=== PATIENT | male | born 1955 | race Caucasian/White ===

== ENCOUNTER → 2016-04-01 | Outpatient (REF) | payer OTHER ==
[~2016-04-01] MED LIST: /TIOT18INH INH; ALBUTEROL LIQ; AMLO10TA OR; ATEN25TA OR; DOXY100T OR; HYDR25TA6 OR; NICO21DI4 TD; PRAV40TA OR; TYLE500T53 OR; saline nasal spray
[2016-04-01 15:47] LABS: MEAN CORPUSCULAR HEMOGLOBIN 28.9 pg (27.0-33.0); MEAN CORPUSCULAR HGB CONC 32.1 g/dl (32.0-36.5); MEAN CORPUSCULAR VOLUME 89.9 fl (80.0-96.0); RED CELL DISTRIBUTION WIDTH 13.5 % (11.5-14.5); WHITE BLOOD COUNT 8.1 K/mm3 (4.0-10.0)
[2016-04-01 15:59] LABS: ALBUMIN 3.6 GM/DL (3.2-5.2); ALBUMIN/GLOBULIN RATIO 1.03 (1.00-1.93); ALKALINE PHOSPHATASE 83 U/L (45-117); ALT/SGPT 55 U/L (12-78); ANION GAP 10 MEQ/L (8-16); AST/SGOT 65 U/L (15-37); BILIRUBIN,TOTAL 0.6 MG/DL (0.2-1.0); BLOOD UREA NITROGEN 9 MG/DL (7-18); CALCIUM LEVEL 8.5 MG/DL (8.8-10.2); CARBON DIOXIDE LEVEL 30 MEQ/L (21-32); CHLORIDE LEVEL 98 MEQ/L (98-107); CHOLESTEROL LEVEL 165 MG/DL (<200); CREATININE FOR GFR 1.06 MG/DL (0.70-1.30); GLOMERULAR FILTRATION RATE > 60.0 (>49); GLUCOSE, FASTING 108 MG/DL (80-110); POTASSIUM SERUM 3.9 MEQ/L (3.5-5.1); SODIUM LEVEL 138 MEQ/L (136-145); TOTAL PROTEIN 7.1 GM/DL (6.4-8.2); TRIGLYCERIDES LEVEL 82 MG/DL (<150)
== END ==
LOC: M SFHCPLAZ 14:06
PROVIDERS: ATTEND Nurse Practitioner Adult Health
DX: Z12.5 Encounter for screening for malignant neoplasm of prostate (principal); I10 Essential (primary) hypertension; E78.00 Pure hypercholesterolemia, unspecified
CPT/HCPCS: 36415; 80053; 80061; 85027; G0103

== ENCOUNTER → 2016-06-04 | Outpatient (CLI) | payer OTHER ==
--- NOTE | 2016-06-04 14:05 | REP ---
Clinical: Lung screening. History smoking. Comparison: Chest CT dated 02/14/2010 Technique: Axial low-dose noncontrast images from the thoracic inlet to the upper abdomen using lung screening technique. Findings: The lung tinoco are well-aerated. No consolidation, significant nodule or mass lesion is appreciated. No pleural effusion/reaction or pneumothorax. Tracheobronchial tree is patent. Mediastinum demonstrates mild atherosclerotic changes of the coronary arteries without cardiomegaly. Impression: Lung-RADS category I. No nodule or suspicious abnormality. Signed by Alonso Beauchamp MD 06/04/2016 01:56 P
== END ==
LOC: M RAD 13:11
PROVIDERS: ATTEND Nurse Practitioner Adult Health
DX: Z12.2 Encounter for screening for malignant neoplasm of respiratory organs (principal); F17.210 Nicotine dependence, cigarettes, uncomplicated

== ENCOUNTER 2016-06-26 16:26 | Inpatient (IN) | payer OTHER ==
[~2016-06-26] VITALS: Ht 172.7 cm; Wt 91.1 kg
[2016-06-26] MEDS: ADVAIR DISKUS 250/50 INH PWD INH SCH (03:00)
[2016-06-26 17:18] LABS: BASO % 0.5 % (0.0-1.0); EOS # 0.2 K/mm3 (0.0-0.50); EOS % 2.6 % (0.0-3.0); LARGE UNSTAINED CELL # 0.2 K/mm3 (0.0-0.4); LARGE UNSTAINED CELL % 2.3 % (0.0-4.0); LYMPH # 2.4 K/mm3 (1.5-4.5); LYMPH % 29.6 % (24.0-44.0); MEAN CORPUSCULAR HEMOGLOBIN 29.8 pg (27.0-33.0); MEAN CORPUSCULAR HGB CONC 33.4 g/dl (32.0-36.5); MEAN CORPUSCULAR VOLUME 89.2 fl (80.0-96.0); MONO # 0.6 K/mm3 (0.0-0.8); NEUTROPHILS # 4.6 K/mm3 (1.8-7.7); PLATELET COUNT, AUTOMATED 215 k/mm3 (150-450); RED CELL DISTRIBUTION WIDTH 13.4 % (11.5-14.5)
[2016-06-26 17:38] LABS: ANION GAP 7 MEQ/L (8-16); BLOOD UREA NITROGEN 19 MG/DL (7-18); CALCIUM LEVEL 8.7 MG/DL (8.8-10.2); CARBON DIOXIDE LEVEL 27 MEQ/L (21-32); CHLORIDE LEVEL 103 MEQ/L (98-107); CREATININE FOR GFR 1.12 MG/DL (0.70-1.30); GLOMERULAR FILTRATION RATE > 60.0 (>49); GLUCOSE, FASTING 108 MG/DL (80-110); POTASSIUM SERUM 4.1 MEQ/L (3.5-5.1); SODIUM LEVEL 137 MEQ/L (136-145)
[2016-06-26 17:59] LABS: INR 1.01
--- NOTE | 2016-06-26 17:59 | REP ---
CT HEAD WITHOUT CONTRAST: HISTORY: CVA. COMPARISON: 02/14/2010 TECHNIQUE: 4.5 mm contiguous transaxial sections were obtained from the skull base to the cerebral convexities with thin cuts through the posterior fossa with and without the administration of intravenous contrast. FINDINGS: The ventricles and sulci are consistent with the patient's age. There are no extra-axial fluid collections. There is no mass effect on the non-contrast scan and there are no enhancing mass lesions on the post contrast scan. The deep cerebral white matter is consistent with the patient's age. The orbital and petrous structures, cerebellopontine angles and posterior fossa are unremarkable. The sella turcica, cavernous and paracavernous structures are essentially unremarkable. The visualized portions of the paranasal sinuses and mastoid air cells are clear. IMPRESSION: Essentially unremarkable CT examination of the brain. No significant change from the prior exam. Signed by Leonid Shin DO 06/28/2016 03:42 P
--- NOTE | 2016-06-26 18:09 | REP ---
PORTABLE CHEST: REASON: CVA. COMPARISON: 04/01/2016 FINDINGS: The technique utilized in obtaining the radiograph has magnified the cardiac silhouette and accentuated the interstitial markings. The superior mediastinal structures are midline. The cardiac silhouette is unremarkable in size, shape, and position. The diaphragmatic surfaces of the lungs are regular, and the costophrenic angles are clear. The pulmonary tinoco are clear. The imaged osseous structures are intact. No significant change from the prior exam other than technique. IMPRESSION: There is no acute cardiopulmonary disease. Signed by Leonid Shin DO 06/28/2016 03:43 P
[2016-06-26] MEDS ORDERED: NICODIS TD (19:50)
[2016-06-26] MEDS ORDERED: HYDR12CA PO (19:50)
[2016-06-26] MEDS ORDERED: AMLO5TAB2 PO (19:50)
[2016-06-26] MEDS ORDERED: ALBU17IN INH (19:50)
[2016-06-26] MEDS ORDERED: ATEN25TA PO (19:50)
[2016-06-26] MEDS ORDERED: PRAV40TA2 PO (19:51)
[2016-06-26] MEDS ORDERED: BREO1INH3 INH (19:51)
[2016-06-26] MEDS ORDERED: SALI0.653 (19:51)
--- NOTE | 2016-06-26 20:30 | REPUSA ---
CLINICAL HISTORY: Left-sided facial numbness and paresthesia. TECHNIQUE: - MRI of the brain was performed without administration of intravenous contrast material. T1 spine ec ho, T2 fast spin echo, FLAIR, and diffusion-weighted with ADC mapping were obtained in sagittal, axia l and coronal planes. - Magnetic resonance angiography of the neck was performedwith 2-D axial [id number] images, with MRA of the [place] performed with 2-D axial phase contrast and 3-D axial [id number] imag es. FINDINGS: The sella and parasellar regions are unremarkable in appearance. The corpus callosum and cerebellar t onsils are of normal configuration and position. There are no intra or extra-axial collections. There is no mass effect or midline shift. There is no evidence of hematoma formation. There is no hydrocep halus. The brain stem shows no mass effects, infarcts or hemorrhage. There are no cerebellopontine masses. F ourth ventricle and aqueduct are normal. No abnormalities of the optic nerves are identified. No dura l or subdural masses or collections are detected. The visualized arterial structures demonstrate normal appearing flow voids. No suspicious signal abno rmalities within the infra or supratentorial space. Intermediate to hyperintense T2 signal changes with mucosal thickening in the posterior left ethmoida l and sphenoid sinuses are unremarkable. The anterior communicating artery and both posterior communicating arteries are identified. Vertebral arteries are grossly unremarkable. No flow restrictive stenoses. No AVM's or large aneurysms are dem onstrated. IMPRESSION: No evidence of acute intracranial hemorrhage or acute territorial infarct. No aneurysmal dilatation, gross occlusions, or stenotic segments identified. Thank you for your kind referral of this patient.
--- NOTE | 2016-06-26 20:30 | REPUSA ---
CLINICAL HISTORY: Left-sided facial numbness and paresthesia. TECHNIQUE: MRI of the brain was performed without administration of intravenous contrast material. T1 spine echo, T2 fast spin echo, FLAIR, and diffusion-weighted with ADC mapping were obtained in sagit nayeli, axial and coronal planes. FINDINGS: The sella and parasellar regions are unremarkable in appearance. The corpus callosum and cerebellar t onsils are of normal configuration and position. There are no intra or extra-axial collections. There is no mass effect or midline shift. There is no evidence of hematoma formation. There is no hydrocep halus. The brain stem shows no mass effects, infarcts or hemorrhage. There are no cerebellopontine masses. F ourth ventricle and aqueduct are normal. No abnormalities of the optic nerves are identified. No dura l or subdural masses or collections are detected. The visualized arterial structures demonstrate normal appearing flow voids. No suspicious signal abno rmalities within the infra or supratentorial space. Intermediate to hyperintense T2 signal changes with mucosal thickening in the posterior left ethmoida l and sphenoid sinuses are unremarkable. IMPRESSION: No evidence of acute intracranial hemorrhage or acute territorial infarct. Thank you for your kind referral of this patient.
[2016-06-26] MEDS ORDERED: ALBUTEROL 90 MCG/ACT 8GM HFA INHALER INH PRN (21:00)
[2016-06-26] MEDS ORDERED: ONDANSETRON 4MG/2ML VIAL (J2405) IV PRN (21:00)
[2016-06-26] MEDS ORDERED: ACETAMINOPHEN TAB 650MG DOSE (2X325MG) PO PRN (21:00)
[2016-06-26] MEDS ORDERED: ASPIRIN 81 MG ENTERIC TAB PO ONE (21:15)
[2016-06-26 21:45] LABS: CHOLESTEROL LEVEL 201 MG/DL (<200); TRIGLYCERIDES LEVEL 128 MG/DL (<150)
--- NOTE | 2016-06-26 22:10 | REPUSA ---
CLINICAL STATEMENT: TIA/CVA TECHNIQUE: Ultrasound of the carotid arteries was performed using harris-scale and color/spectral Doppl er flow. All qualitative and quantitative assessments of carotid bifurcation and proximal internal ca rotid artery stenoses are made indirectly referencing the distal internal carotid artery. COMPARISON: None FINDINGS: Right The peak systolic velocities within the common and internal carotid arteries are listed below in cent imeters per second: Distal common carotid artery: 65.5 Internal carotid artery: 36.1 External carotid artery: 69.1 Vertebral artery: Antegrade Internal carotid / common carotid peak systolic velocity ratio: 0.55 Left The peak systolic velocities within the common and internal carotid arteries are listed below in cent imeters per second: Distal common carotid artery: 75.0 Internal carotid artery: proximal 78.2 External carotid artery: 94.0 Vertebral artery: Anterograde Internal carotid / common carotid peak systolic velocity ratio: 1.04 IMPRESSION: No evidence of hemodynamic significant stenosis
[2016-06-26 22:50] VITALS: BP 142/86
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
[2016-06-26] MEDS ORDERED: SLF 3 ML SYR IV PRN (23:00)
[2016-06-26] MEDS: ATENOLOL 25 MG TAB PO SCH (23:01)
[2016-06-26] MEDS: hydroCHLOROthiazide 12.5 MG CAPSULE PO SCH (23:01)
[2016-06-26] MEDS: amLODIPine 5 MG TAB PO SCH (23:02)
[2016-06-27] VITALS (7 sets, daily range): BP systolic 110–138; BP diastolic 70–89
[2016-06-27] MEDS: SLF 3 ML SYR IV SCH ×3 (05:38→21:05)
[2016-06-27 05:55] LABS: MEAN CORPUSCULAR HEMOGLOBIN 29.7 pg (27.0-33.0); MEAN CORPUSCULAR HGB CONC 33.1 g/dl (32.0-36.5); MEAN CORPUSCULAR VOLUME 89.9 fl (80.0-96.0); RED CELL DISTRIBUTION WIDTH 13.5 % (11.5-14.5)
[2016-06-27 06:28] LABS: ANION GAP 5 MEQ/L (8-16); BLOOD UREA NITROGEN 16 MG/DL (7-18); CALCIUM LEVEL 8.4 MG/DL (8.8-10.2); CARBON DIOXIDE LEVEL 31 MEQ/L (21-32); CHLORIDE LEVEL 101 MEQ/L (98-107); CREATININE FOR GFR 1.13 MG/DL (0.70-1.30); GLOMERULAR FILTRATION RATE > 60.0 (>49); GLUCOSE, FASTING 93 MG/DL (80-110); MAGNESIUM LEVEL 2.4 MG/DL (1.8-2.4); POTASSIUM SERUM 3.9 MEQ/L (3.5-5.1); SODIUM LEVEL 137 MEQ/L (136-145)
[2016-06-27] MEDS: ADVAIR DISKUS 250/50 INH PWD INH SCH ×2 (07:22→21:15)
[2016-06-27] MEDS: NICOTINE 21MG/24HR 1 EA TRANSDERMAL TD SCH (08:24)
[2016-06-27] MEDS: ASPIRIN 81 MG ENTERIC TAB PO SCH (08:25)
[2016-06-27] MEDS: ENOXAPARIN 40 MG/0.4 ML SYRINGE (J1650) SC SCH (08:25)
--- NOTE | 2016-06-27 08:40 | ECGEPIP ---
Stationary ECG Study [facility] - ED Test Date: 2016-06-26 Pat Name: JOSE MASON Department: Room: - Gender: M [employer]: chito : 1955 Requested By: Florence Boo Order Number: [id number] Reading MD: Florence Boo Measurements Intervals Belva Rate: 91 P: 59 ID: [id number] QRS: 45 QRSD: 86 T: 55 QT: 328 QTc: 404 Interpretive Statements SINUS RHYTHM WITH OCCASIONAL VENTRICULAR PREMATURE COMPLEXES NO PRIOR FOR COMPARISON Electronically Signed On 06-27-2016 8:39:43 EDT by Florence Boo
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
[2016-06-27] MEDS ORDERED: ATORVASTATIN 20 MG TAB PO SCH (21:00)
[2016-06-27] MEDS: ATENOLOL 25 MG TAB PO SCH (21:06)
[2016-06-27] MEDS: amLODIPine 5 MG TAB PO SCH (21:06)
[2016-06-27] MEDS: hydroCHLOROthiazide 12.5 MG CAPSULE PO SCH (21:06)
[2016-06-28 04:00] VITALS: BP 131/95
[2016-06-28] MEDS: SLF 3 ML SYR IV SCH (06:00)
[2016-06-28 06:05] LABS: MEAN CORPUSCULAR HEMOGLOBIN 29.5 pg (27.0-33.0); MEAN CORPUSCULAR HGB CONC 33.2 g/dl (32.0-36.5); MEAN CORPUSCULAR VOLUME 88.9 fl (80.0-96.0); RED CELL DISTRIBUTION WIDTH 13.5 % (11.5-14.5); WHITE BLOOD COUNT 8.7 K/mm3 (4.0-10.0)
[2016-06-28 06:23] LABS: ANION GAP 5 MEQ/L (8-16); BLOOD UREA NITROGEN 15 MG/DL (7-18); CALCIUM LEVEL 8.5 MG/DL (8.8-10.2); CARBON DIOXIDE LEVEL 29 MEQ/L (21-32); CHLORIDE LEVEL 102 MEQ/L (98-107); CREATININE FOR GFR 1.16 MG/DL (0.70-1.30); GLOMERULAR FILTRATION RATE > 60.0 (>49); GLUCOSE, FASTING 103 MG/DL (80-110); SODIUM LEVEL 136 MEQ/L (136-145)
[2016-06-28] MEDS: ADVAIR DISKUS 250/50 INH PWD INH SCH (07:52)
[2016-06-28 08:00] VITALS: BP 136/88
[2016-06-28] MEDS: ASPIRIN 81 MG ENTERIC TAB PO SCH (09:16)
[2016-06-28] MEDS: ENOXAPARIN 40 MG/0.4 ML SYRINGE (J1650) SC SCH (09:16)
[2016-06-28] MEDS: NICOTINE 21MG/24HR 1 EA TRANSDERMAL TD SCH (09:16)
[2016-06-28] MEDS ORDERED: ASPI1TAB PO (12:48)
[2016-06-28] MEDS ORDERED: ATOR1TAB21 PO (12:48)
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
--- NOTE | 2016-06-28 13:52 | ECHO ---
DATE OF PROCEDURE: 06/27/2016 REFERRING PROVIDER: Dr. Bora Montemayor REASON FOR THE ECHOCARDIOGRAM: TIA. 2D MEASUREMENTS: IVS - 0.85 cm LVPW - 0.89 cm LV - 4.7 cm LA - 3.9 cm Aorta - 3.6 cm DOPPLER MEASUREMENTS: Peak velocity across the aortic valve - 1.1 m/s Peak velocity across the LVOT - 0.9 m/s Mitral E - 0.63, Mitral A - 0.88 with a ratio of 0.71 Maximum tricuspid valve velocity - 2.3 m/s 2D COMMENTS: 1. Normal left ventricular size, wall thickness and normal global left ventricular systolic function estimated at 65 to 70%. 2. Normal left atrium. Normal right atrium and right ventricle. 3. The atrial septum appeared to be normal with evidence of defect or shunt. 4. Normal aortic root. 5. Trace pericardial effusion noted mainly anteriorly and this could represent a pericardial fat pad. 6. Minimally calcified aortic valve with normal leaflet excursion. Mildly calcified mitral annulus with normal arterial mitral valve leaflet motion. Normal tricuspid valve. The pulmonic valve and proximal pulmonary artery branches were not well visualized. 7. The inferior vena cava was normal in size at 1.85 cm. Central venous pressure is most likely normal. Doppler detects trace mitral regurgitation and mild tricuspid regurgitation. The calculated pulmonary artery systolic pressure is probably 30 mmHg. Abnormal relaxation pattern was noted across the mitral valve leaflets as well as the mitral valve annulus consistent with a delayed relaxation. IMPRESSION: 1. Normal global left ventricular systolic function. There were features of left ventricular diastolic dysfunction, grade 1. 2. Aortic valve sclerosis without stenosis or aortic regurgitation. 3. Mitral annulus calcification with trace mitral regurgitation. 4. Mild tricuspid regurgitation with probably mild pulmonary artery hypertension. 5. Echo free space noted anteriorly to the heart may represent a pericardial fat pad versus trace pericardial effusion.
== END 2016-06-28 14:02 | disposition home or self-care (01) | DRG 69 ==
LOC: M ED 17:26 → M ED INP 20:49 → M PCU 22:49
PROVIDERS: ADMIT Internal Medicine; ATTEND Internal Medicine
DX: G45.9 Transient cerebral ischemic attack, unspecified (principal); I10 Essential (primary) hypertension; E78.5 Hyperlipidemia, unspecified; F17.210 Nicotine dependence, cigarettes, uncomplicated; J44.9 Chronic obstructive pulmonary disease, unspecified; Z79.82 Long term (current) use of aspirin; Z79.899 Other long term (current) drug therapy

== ENCOUNTER → 2016-07-08 | Outpatient (CLI) | payer OTHER ==
[~2016-07-08] VITALS: Ht 175.3 cm; Wt 90.7 kg
[~2016-07-08] MED LIST changes: +ALBU17IN INH; +AMLO5TAB2 PO; +ASPI1TAB PO; +ATEN25TA PO; +ATOR1TAB21 PO; +BREO1INH3 INH; +HYDR12CA PO; +LIDOCAINE 2% INJ 100 MG/5 ML SDV (FOR ANES.) As Ordered ONE; +NICODIS TD; +NS 1,000 ML IV ONE; +PRAV40TA2 PO; +PROPOFOL 200 MG/20 ML VIAL As Ordered ONE; +SALI0.653
--- NOTE | 2016-07-08 14:47 | ROOR ---
Patient Name: Denys Buchanan Procedure Date: 07/08/2016 2:14 PM Date of : 1955 Age: 61 Room: [facility] Gender: Male Note Status: Finalized Procedure: Colonoscopy to Cecum + Cold Snare Polypectomy + Hemoclips. Indications: High risk colon cancer surveillance: Personal history of adenoma with villous component Providers: Jason Oliveira MD Referring MD: Chiquis De Luna NP Requesting Provider: Medicines: Monitored Anesthesia Care Complications: No immediate complications. Procedure: Pre-Anesthesia Assessment: - The heart rate, respiratory rate, oxygen saturations, blood pressure, adequacy of pulmonary ventilation, and response to care were monitored throughout the procedure. The Colonoscope was introduced through the anus and advanced to the cecum, identified by appendiceal orifice and ileocecal valve. The colonoscopy was performed without difficulty. The patient tolerated the procedure well. The quality of the bowel preparation was excellent. Findings: The perianal and digital rectal examinations were normal. Non-bleeding internal hemorrhoids were found during retroflexion. The hemorrhoids were small and Grade I (internal hemorrhoids that do not prolapse). A large polyp was found in the cecum. The polyp was sessile. The polyp was removed with a cold snare. Resection and retrieval were complete. To prevent bleeding after the polypectomy, three hemostatic clips were successfully placed (MR conditional). There was no bleeding at the end of the procedure. The exam was otherwise without abnormality on direct and retroflexion views. Impression: - Non-bleeding internal hemorrhoids. - One large polyp in the cecum, removed with a cold snare. Resected and retrieved. Clips (MR conditional) were placed. - The examination was otherwise normal on direct and retroflexion views. - The exam was otherwise normal to the cecum. Recommendation: - Patient has a contact number available for emergencies. The signs and symptoms of potential delayed complications were discussed with the patient. Return to normal activities tomorrow. Written discharge instructions were provided to the patient. - High fiber diet. - Discharge patient to home. - Continue present medications. - Await pathology results. - Telephone GI clinic for pathology results in 1 week. - Check Portal Online for Path Results.([email or web address]) - Repeat colonoscopy for surveillance based on pathology results. Jason Oliveira MD Jason Oliveira MD 07/08/2016 2:47:05 PM This report has been signed electronically. Number of Addenda: 0 Note Initiated On: 07/08/2016 2:14 PM Estimated Blood Loss: Estimated blood loss: none.
[2016-07-08 15:09] VITALS: BP 153/82
== END | disposition home or self-care (01) ==
LOC: M OPP 12:17
PROVIDERS: ATTEND Internal Medicine Gastroenterology
DX: D12.0 Benign neoplasm of cecum (principal); K64.0 First degree hemorrhoids; I10 Essential (primary) hypertension; J44.9 Chronic obstructive pulmonary disease, unspecified; E78.00 Pure hypercholesterolemia, unspecified; R06.83 Snoring; Z79.82 Long term (current) use of aspirin; Z79.899 Other long term (current) drug therapy; F17.290 Nicotine dependence, other tobacco product, uncomplicated; F17.210 Nicotine dependence, cigarettes, uncomplicated; G45.9 Transient cerebral ischemic attack, unspecified; Z79.51 Long term (current) use of inhaled steroids

== ENCOUNTER → 2016-10-01 | Outpatient (REF) | payer OTHER ==
[~2016-10-01] MED LIST changes: -LIDOCAINE 2% INJ 100 MG/5 ML SDV (FOR ANES.) As Ordered ONE; -NS 1,000 ML IV ONE; -PROPOFOL 200 MG/20 ML VIAL As Ordered ONE; +SALI0.6523; -SALI0.653
[2016-10-01 18:14] LABS: VITAMIN B12 LEVEL 447 PG/ML
[2016-10-01 18:15] LABS: FOLATE 8.4 NG/ML
[2016-10-01 18:33] LABS: ALBUMIN 3.9 GM/DL (3.2-5.2); ALBUMIN/GLOBULIN RATIO 1.11 (1.00-1.93); ALKALINE PHOSPHATASE 76 U/L (45-117); ALT/SGPT 57 U/L (12-78); ANION GAP 6 MEQ/L (8-16); AST/SGOT 48 U/L (15-37); BILIRUBIN,TOTAL 0.5 MG/DL (0.2-1.0); BLOOD UREA NITROGEN 12 MG/DL (7-18); CALCIUM LEVEL 8.7 MG/DL (8.8-10.2); CARBON DIOXIDE LEVEL 28 MEQ/L (21-32); CHLORIDE LEVEL 98 MEQ/L (98-107); CREATININE FOR GFR 1.14 MG/DL (0.70-1.30); GLOMERULAR FILTRATION RATE > 60.0 (>49); GLUCOSE, FASTING 99 MG/DL (80-110); POTASSIUM SERUM 4.7 MEQ/L (3.5-5.1); SODIUM LEVEL 132 MEQ/L (136-145); TOTAL PROTEIN 7.4 GM/DL (6.4-8.2)
[2016-10-01 18:54] LABS: BASO # 0.1 K/mm3 (0.0-0.2); EOS # 0.2 K/mm3 (0.0-0.50); LARGE UNSTAINED CELL # 0.1 K/mm3 (0.0-0.4); LARGE UNSTAINED CELL % 1.4 % (0.0-4.0); LYMPH % 25.2 % (24.0-44.0); MEAN CORPUSCULAR HEMOGLOBIN 29.9 pg (27.0-33.0); MEAN CORPUSCULAR HGB CONC 32.3 g/dl (32.0-36.5); MEAN CORPUSCULAR VOLUME 92.5 fl (80.0-96.0); MONO # 0.5 K/mm3 (0.0-0.8); MONO % 6.1 % (0.0-5.0); NEUTROPHILS # 4.8 K/mm3 (1.8-7.7); NEUTROPHILS % 63.3 % (36.0-66.0); PLATELET COUNT, AUTOMATED 212 k/mm3 (150-450); RED CELL DISTRIBUTION WIDTH 13.2 % (11.5-14.5); WHITE BLOOD COUNT 7.5 K/mm3 (4.0-10.0)
[2016-10-01 19:41] LABS: ERYTHROCYTE SEDIMENTATION RATE 3 mm/hr (0-20)
[2016-10-07 00:09] LABS: ACETYLCHOLINE RCPTOR BINDING A < 0.03 nmol/L (0.00-0.24); SJOGREN'S ANTI SS-A <0.2 AI (0.0-0.9); SJOGREN'S ANTI SS-B <0.2 AI (0.0-0.9); VITAMIN E LEVEL 9.5 mg/L (5.3-17.5)
== END ==
LOC: M LABDRAWP 15:57
PROVIDERS: ATTEND Psychiatry & Neurology Neurology
DX: R13.10 Dysphagia, unspecified (principal); G45.9 Transient cerebral ischemic attack, unspecified

== ENCOUNTER → 2017-04-03 | Outpatient (REF) | payer OTHER ==
[2017-04-03 18:48] LABS: ALBUMIN 4.2 GM/DL (3.2-5.2); ALBUMIN/GLOBULIN RATIO 1.11 (1.00-1.93); ALKALINE PHOSPHATASE 82 U/L (45-117); ALT/SGPT 25 U/L (12-78); ANION GAP 4 MEQ/L (8-16); AST/SGOT 25 U/L (7-37); BILIRUBIN,TOTAL 0.4 MG/DL (0.2-1.0); BLOOD UREA NITROGEN 18 MG/DL (7-18); CARBON DIOXIDE LEVEL 31 MEQ/L (21-32); CHLORIDE LEVEL 103 MEQ/L (98-107); CHOLESTEROL LEVEL 214 MG/DL (<200); CHOLESTEROL RISK RATIO 3.508 (<5); CREATININE FOR GFR 1.14 MG/DL (0.70-1.30); GLOMERULAR FILTRATION RATE > 60.0 (>49); GLUCOSE, FASTING 95 MG/DL (70-100); HDL CHOLESTEROL 61 MG/DL (>40); LDL CHOLESTEROL 129.6 MG/DL (<100); NON-HDL-C 153 MG/DL; POTASSIUM SERUM 4.9 MEQ/L (3.5-5.1); SODIUM LEVEL 138 MEQ/L (136-145); TRIGLYCERIDES LEVEL 117 MG/DL (<150)
[2017-04-03 20:28] LABS: HEMOGLOBIN 16.2 g/dl (14.0-18.0); MEAN CORPUSCULAR HEMOGLOBIN 27.8 pg (27.0-33.0); MEAN CORPUSCULAR HGB CONC 31.8 g/dl (32.0-36.5); MEAN CORPUSCULAR VOLUME 87.6 fl (80.0-96.0); PLATELET COUNT, AUTOMATED 236 10^3/uL (150-450); RED BLOOD COUNT 5.82 10^6/uL (4.30-6.10); RED CELL DISTRIBUTION WIDTH 15.2 % (11.5-14.5); WHITE BLOOD COUNT 8.7 10^3/uL (4.0-10.0)
[2017-04-04 11:13] LABS: HEPATITIS C VIRUS ABY INDEX < 0.0 INDEX (<0.8)
== END ==
LOC: M SFHCPLAZ 14:00
DX: I10 Essential (primary) hypertension (principal); G45.9 Transient cerebral ischemic attack, unspecified; E78.2 Mixed hyperlipidemia; Z11.59 Encounter for screening for other viral diseases

== ENCOUNTER → 2017-10-14 | Outpatient (REF) | payer OTHER ==
[2017-10-14 16:14] LABS: ALBUMIN 3.7 GM/DL (3.2-5.2); ALBUMIN/GLOBULIN RATIO 1.16 (1.00-1.93); ALKALINE PHOSPHATASE 69 U/L (45-117); ALT/SGPT 33 U/L (12-78); ANION GAP 9 MEQ/L (8-16); AST/SGOT 27 U/L (7-37); BILIRUBIN,TOTAL 0.4 MG/DL (0.2-1.0); BLOOD UREA NITROGEN 14 MG/DL (7-18); CALCIUM LEVEL 8.6 MG/DL (8.8-10.2); CARBON DIOXIDE LEVEL 25 MEQ/L (21-32); CHLORIDE LEVEL 108 MEQ/L (98-107); CHOLESTEROL LEVEL 181 MG/DL (<200); CHOLESTEROL RISK RATIO 2.742 (<5); CREATININE FOR GFR 1.24 MG/DL (0.70-1.30); GLOMERULAR FILTRATION RATE > 60.0 (>49); GLUCOSE, FASTING 89 MG/DL (70-100); HDL CHOLESTEROL 66 MG/DL (>40); LDL CHOLESTEROL 97.4 MG/DL (<100); NON-HDL-C 115 MG/DL; POTASSIUM SERUM 4.6 MEQ/L (3.5-5.1); PSA SCREENING 2.94 NG/ML (< 4.0); SODIUM LEVEL 142 MEQ/L (136-145); THYROID STIMULATING HORMONE 0.494 uIU/ML (0.358-3.740); TOTAL PROTEIN 6.9 GM/DL (6.4-8.2); TRIGLYCERIDES LEVEL 88 MG/DL (<150)
== END ==
LOC: M SFHCPLAZ 14:03
DX: Z00.00 Encounter for general adult medical examination without abnormal findings (principal); E78.2 Mixed hyperlipidemia; Z12.5 Encounter for screening for malignant neoplasm of prostate

== ENCOUNTER → 2017-10-28 | Outpatient (REF) | payer OTHER | LOC: M SMT 18:08 | DX: R97.20 Elevated prostate specific antigen [PSA] (principal) ==

== ENCOUNTER → 2018-02-02 | Outpatient (REF) | payer OTHER ==
[2018-02-04 14:13] LABS: PSA TOTAL 1.3 ng/mL (0.0-4.0)
== END ==
LOC: M SFHCPLAZ 14:47
DX: R97.20 Elevated prostate specific antigen [PSA] (principal)

== ENCOUNTER → 2018-04-21 | Outpatient (REF) | payer OTHER ==
[~2018-04-21] MED LIST changes: -AMLO5TAB2 PO; +AMLO5TAB6 PO; +NICO21DI34 TD; -NICODIS TD; -SALI0.6523; +SALI0.6528
[2018-04-21 16:38] LABS: HEMATOCRIT 51.2 % (42.0-52.0); HEMOGLOBIN 16.5 g/dl (13.5-17.5); MEAN CORPUSCULAR HEMOGLOBIN 29.4 pg (27.0-33.0); MEAN CORPUSCULAR HGB CONC 32.2 g/dl (32.0-36.5); MEAN CORPUSCULAR VOLUME 91.1 fl (80.0-96.0); PLATELET COUNT, AUTOMATED 239 10^3/uL (150-450); RED BLOOD COUNT 5.62 10^6/uL (4.30-6.10); WHITE BLOOD COUNT 8.5 10^3/uL (4.0-10.0)
[2018-04-21 16:40] LABS: ALT/SGPT 33 U/L (12-78); BILIRUBIN,TOTAL 0.6 MG/DL (0.2-1.0); BLOOD UREA NITROGEN 16 MG/DL (7-18); CALCIUM LEVEL 8.8 MG/DL (8.8-10.2); CARBON DIOXIDE LEVEL 30 MEQ/L (21-32); CHLORIDE LEVEL 100 MEQ/L (98-107); CHOLESTEROL LEVEL 194 MG/DL (<200); CHOLESTEROL RISK RATIO 3.592 (<5); CREATININE FOR GFR 1.22 MG/DL (0.70-1.30); GLOMERULAR FILTRATION RATE > 60.0 (>49); GLUCOSE, FASTING 93 MG/DL (70-100); HDL CHOLESTEROL 54 MG/DL (>40); LDL CHOLESTEROL 113 MG/DL (<100); NON-HDL-C 140 MG/DL; POTASSIUM SERUM 4.6 MEQ/L (3.5-5.1); SODIUM LEVEL 137 MEQ/L (136-145); TOTAL PROTEIN 7.2 GM/DL (6.4-8.2); TRIGLYCERIDES LEVEL 135 MG/DL (<150)
== END ==
LOC: M SFHCPLAZ 13:40
PROVIDERS: ATTEND Nurse Practitioner Adult Health
DX: E78.2 Mixed hyperlipidemia (principal); I10 Essential (primary) hypertension

== ENCOUNTER → 2018-07-30 | Outpatient (REF) | payer OTHER ==
[~2018-07-30] MED LIST changes: -/TIOT18INH INH; -ASPI1TAB PO; +ASPI81TA26 PO; +SPIR1CAP INH
[2018-08-02 00:06] LABS: PSA TOTAL 0.9 ng/mL (0.0-4.0)
== END ==
LOC: M SFHCPLAZ 13:00
PROVIDERS: ATTEND Nurse Practitioner Family
DX: R97.20 Elevated prostate specific antigen [PSA] (principal)

== ENCOUNTER 2018-08-31 06:46 | Day surgery (SDC) | payer OTHER ==
[~2018-08-31] VITALS: Ht 175.3 cm; Wt 94.3 kg
[~2018-08-31 06:46] MED LIST changes: +DYMI137S; +NICO21DI37 TD
[2018-08-31] MEDS ORDERED: LIDOCAINE 2% INJ 100 MG/5 ML SDV (FOR ANES.) As Ordered ONE (07:01)
[2018-08-31] MEDS ORDERED: PROPOFOL 200 MG/20 ML VIAL As Ordered ONE (07:01)
[2018-08-31] MEDS: NS 1,000 ML IV ONE (07:05)
--- NOTE | 2018-08-31 08:04 | ROOR ---
Patient Name: Denys Buchanan Procedure Date: 08/31/2018 7:35 AM Date of : 1955 Age: 63 Room: [facility] Gender: Male Note Status: Finalized Procedure: Total Colonoscopy to Cecum + Biopsy Polypectomy Indications: High risk colon cancer surveillance: Personal history of adenoma with villous component Providers: Jason Oliveira MD Referring MD: Chiquis ZURITA NP Requesting Provider: Medicines: Monitored Anesthesia Care Complications: No immediate complications. Procedure: Pre-Anesthesia Assessment: - The heart rate, respiratory rate, oxygen saturations, blood pressure, adequacy of pulmonary ventilation, and response to care were monitored throughout the procedure. The Colonoscope was introduced through the anus and advanced to the cecum, identified by appendiceal orifice and ileocecal valve. The colonoscopy was performed without difficulty. The patient tolerated the procedure well. The quality of the bowel preparation was excellent. Findings: The perianal and digital rectal examinations were normal. Non-bleeding internal hemorrhoids were found during retroflexion. The hemorrhoids were small and Grade I (internal hemorrhoids that do not prolapse). Scattered small-mouthed diverticula were found in the recto-sigmoid colon, sigmoid colon and descending colon. A small polyp was found at 50 cm proximal to the anus. The polyp was sessile. The polyp was removed with a jumbo cold forceps. Resection and retrieval were complete. A diminutive polyp was found in the cecum. The polyp was carpet-like. The polyp was removed with a jumbo cold forceps. Resection and retrieval were complete. To prevent bleeding after the polypectomy, one hemostatic clip was successfully placed (MR conditional). There was no bleeding at the end of the procedure. The exam was otherwise without abnormality on direct and retroflexion views. Impression: - Non-bleeding internal hemorrhoids. - Diverticulosis in the recto-sigmoid colon, in the sigmoid colon and in the descending colon. - One small polyp at 50 cm proximal to the anus, removed with a jumbo cold forceps. Resected and retrieved. - One diminutive polyp in the cecum, removed with a jumbo cold forceps. Resected and retrieved. Clip (MR conditional) was placed. - The examination was otherwise normal on direct and retroflexion views. - The exam was otherwise normal to the cecum. Recommendation: - Patient has a contact number available for emergencies. The signs and symptoms of potential delayed complications were discussed with the patient. Return to normal activities tomorrow. Written discharge instructions were provided to the patient. - High fiber diet. - Discharge patient to home. - Continue present medications. - Await pathology results. - Telephone GI clinic for pathology results in 1 week. - Repeat colonoscopy for surveillance based on pathology results. - Return to referring physician. - The findings and recommendations were discussed with the patient's family. Jason Oliveira MD Jason Oliveira MD 08/31/2018 8:03:45 AM Electronically signed by Jason Oliveira MD Number of Addenda: 0 Note Initiated On: 08/31/2018 7:35 AM Estimated Blood Loss: Estimated blood loss: none.
[2018-08-31 08:20] VITALS: BP 149/98
== END 2018-08-31 08:27 | disposition home or self-care (01) ==
LOC: M OPP 06:46
PROVIDERS: ATTEND Internal Medicine Gastroenterology
DX: D12.0 Benign neoplasm of cecum (principal); D12.8 Benign neoplasm of rectum; K64.0 First degree hemorrhoids; K57.30 Diverticulosis of large intestine without perforation or abscess without bleeding; Z86.010 Personal history of colon polyps

== ENCOUNTER → 2018-10-20 | Outpatient (REF) | payer OTHER ==
[2018-10-20 16:19] LABS: HEMATOCRIT 47.5 % (42.0-52.0); HEMOGLOBIN 15.2 g/dl (13.5-17.5); MEAN CORPUSCULAR VOLUME 93.7 fl (80.0-96.0); PLATELET COUNT, AUTOMATED 216 10^3/uL (150-450); RED BLOOD COUNT 5.07 10^6/uL (4.30-6.10); WHITE BLOOD COUNT 8.3 10^3/uL (4.0-10.0)
[2018-10-20 16:32] LABS: ALBUMIN 3.7 GM/DL (3.2-5.2); ALT/SGPT 55 U/L (12-78); BILIRUBIN,TOTAL 0.4 MG/DL (0.2-1.0); BLOOD UREA NITROGEN 18 MG/DL (7-18); CALCIUM LEVEL 8.5 MG/DL (8.8-10.2); CARBON DIOXIDE LEVEL 30 MEQ/L (21-32); CHLORIDE LEVEL 105 MEQ/L (98-107); CHOLESTEROL LEVEL 183 MG/DL (<200); CHOLESTEROL RISK RATIO 3.519 (<5); CREATININE FOR GFR 1.18 MG/DL (0.70-1.30); GLOMERULAR FILTRATION RATE > 60.0 (>49); GLUCOSE, FASTING 85 MG/DL (70-100); HDL CHOLESTEROL 52 MG/DL (>40); LDL CHOLESTEROL 89 MG/DL (<100); NON-HDL-C 131 MG/DL; POTASSIUM SERUM 4.6 MEQ/L (3.5-5.1); SODIUM LEVEL 140 MEQ/L (136-145); TRIGLYCERIDES LEVEL 208 MG/DL (<150)
== END ==
LOC: M SFHCPLAZ 13:50
PROVIDERS: ATTEND Nurse Practitioner Adult Health
DX: Z00.00 Encounter for general adult medical examination without abnormal findings (principal); E78.2 Mixed hyperlipidemia; I10 Essential (primary) hypertension

== ENCOUNTER → 2019-04-13 | Outpatient (CLI) | payer OTHER ==
--- NOTE | 2019-04-14 06:14 | REP ---
Clinical: Abdominal pain with history of ventral hernia. Technique: Axial noncontrast images from the lung bases to the pubic symphysis with coronal and sagittal re-formations. Findings: Lung bases are clear. Visualized heart and pericardium grossly normal. Liver, spleen, pancreas, gallbladder, and bilateral adrenal glands are normal for noncontrast evaluation. The kidneys demonstrate symmetric moderate perinephric stranding which is likely chronic and there is no evidence for hydronephrosis or nephrolithiasis. The enteric system is without obstruction or acute inflammatory process. Colonic diverticulosis noted without acute diverticulitis. Normal terminal ileum and appendix are identified in the right lower quadrant. Pelvis demonstrates normal bladder and age appropriate prostate/seminal vesicles. No ascites. No free air. No adenopathy. No significant hernia. Atherosclerotic changes to the aorta and vasculature noted. Musculoskeletal structures demonstrate age-related degenerative changes without focal abnormality. Small fat containing left inguinal hernia suggested. Impression: 1. No obvious acute abdominopelvic pathology appreciated. 2. Presumed chronic symmetric bilateral perinephric stranding. 3. Diverticulosis without acute diverticulitis. 4. Small fat containing left inguinal hernia noted. No ventral hernia identified. Electronically Signed by Alonso Beauchamp MD 04/14/2019 06:05 A
== END ==
LOC: M RAD 16:44
PROVIDERS: ATTEND Surgery
DX: K40.90 Unilateral inguinal hernia, without obstruction or gangrene, not specified as recurrent (principal); I70.0 Atherosclerosis of aorta; K57.90 Diverticulosis of intestine, part unspecified, without perforation or abscess without bleeding

== ENCOUNTER → 2019-04-22 | Outpatient (REF) | payer OTHER ==
[2019-04-22 18:56] LABS: HEMATOCRIT 50.9 % (42.0-52.0); HEMOGLOBIN 16.4 g/dl (13.5-17.5); MEAN CORPUSCULAR HEMOGLOBIN 29.8 pg (27.0-33.0); MEAN CORPUSCULAR HGB CONC 32.2 g/dl (32.0-36.5); MEAN CORPUSCULAR VOLUME 92.5 fl (80.0-96.0); PLATELET COUNT, AUTOMATED 225 10^3/uL (150-450); WHITE BLOOD COUNT 9.1 10^3/uL (4.0-10.0)
[2019-04-22 19:03] LABS: ALBUMIN 3.8 GM/DL (3.2-5.2); BILIRUBIN,TOTAL 0.5 MG/DL (0.2-1.0); CALCIUM LEVEL 8.8 MG/DL (8.8-10.2); CHOLESTEROL RISK RATIO 4.612 (<5); CREATININE FOR GFR 1.31 MG/DL (0.70-1.30); GLOMERULAR FILTRATION RATE 58.8 (>49); POTASSIUM SERUM 4.6 MEQ/L (3.5-5.1); TOTAL PROTEIN 7.2 GM/DL (6.4-8.2)
== END ==
LOC: M SFHCPLAZ 13:36
PROVIDERS: ATTEND Nurse Practitioner Adult Health
DX: I10 Essential (primary) hypertension (principal); E78.2 Mixed hyperlipidemia

== ENCOUNTER → 2019-10-20 | Outpatient (REF) | payer OTHER ==
[~2019-10-20] MED LIST changes: +AMLO1TAB24 PO; -AMLO5TAB6 PO; +PROAAER10 INH
[2019-12-05 06:22] LABS: HEMOGLOBIN A1c 5.3 %
[2019-12-05 06:23] LABS: ALBUMIN 3.9 GM/DL (3.2-5.2); BILIRUBIN,TOTAL 0.6 MG/DL (0.2-1.0); CALCIUM LEVEL 9.1 MG/DL (8.8-10.2); CHOLESTEROL RISK RATIO 3.016 (<5); CREATININE FOR GFR 1.31 MG/DL (0.70-1.30); GLOMERULAR FILTRATION RATE 58.8 (>49); POTASSIUM SERUM 4.6 MEQ/L (3.5-5.1); TOTAL PROTEIN 7.3 GM/DL (6.4-8.2)
== END ==
LOC: M SFHCPLAZ 09:14
PROVIDERS: ATTEND Nurse Practitioner Adult Health
DX: Z13.1 Encounter for screening for diabetes mellitus (principal); I10 Essential (primary) hypertension; E78.2 Mixed hyperlipidemia; I25.10 Atherosclerotic heart disease of native coronary artery without angina pectoris

== ENCOUNTER → 2020-01-28 | Outpatient (CLI) | payer OTHER | LOC: M LABSMTC 13:19 | PROVIDERS: ATTEND Family Medicine | DX: Z20.828 Contact with and (suspected) exposure to other viral communicable diseases (principal) ==

== ENCOUNTER → 2020-06-07 | Outpatient (CLI) | payer OTHER ==
--- NOTE | 2020-06-07 19:58 | REP ---
INDICATION: ENCOUNTER SCREENING FOR LUNG CA. COMPARISON: Low-dose lung screening CT dated 06/04/2016. TECHNIQUE: The study is performed without IV contrast. Images are presented at lung windowing only. FINDINGS: There are no nodules or masses. There are no infiltrates or pleural effusions. There is no change from the prior study. IMPRESSION: Category 1 low-dose lung screening chest CT. The probability of malignancy is less than 1%. Depending on risk factors consider annual follow-up low-dose lung screening CT. <Electronically signed by Kirill Marie > 06/07/[id number]
== END ==
LOC: M RAD 12:49
PROVIDERS: ATTEND Nurse Practitioner Adult Health
DX: Z12.2 Encounter for screening for malignant neoplasm of respiratory organs (principal); Z87.891 Personal history of nicotine dependence

== ENCOUNTER → 2020-08-14 | Outpatient (REF) | payer OTHER ==
[~2020-08-14] MED LIST changes: +FOLI1TAB11 PO; +KETO2SHA8 TOP; +TEMO0.0520 TOP; +THIA100TA PO
[2020-08-14 19:39] LABS: ALBUMIN 3.7 GM/DL (3.2-5.2); ALT/SGPT 28 U/L (12-78); BILIRUBIN,TOTAL 0.5 MG/DL (0.2-1.0); BLOOD UREA NITROGEN 19 MG/DL (7-18); CALCIUM LEVEL 9.1 MG/DL (8.8-10.2); CARBON DIOXIDE LEVEL 28 MEQ/L (21-32); CHLORIDE LEVEL 102 MEQ/L (98-107); CHOLESTEROL LEVEL 194 MG/DL (<200); CHOLESTEROL RISK RATIO 4.217 (<5); CREATININE FOR GFR 1.19 MG/DL (0.70-1.30); GLOMERULAR FILTRATION RATE > 60.0 (>49); GLUCOSE, FASTING 105 MG/DL (70-100); HDL CHOLESTEROL 46 MG/DL (>40); LDL CHOLESTEROL 97 MG/DL (<100); NON-HDL-C 148 MG/DL; POTASSIUM SERUM 4.4 MEQ/L (3.5-5.1); SODIUM LEVEL 137 MEQ/L (136-145); TOTAL PROTEIN 7.3 GM/DL (6.4-8.2); TRIGLYCERIDES LEVEL 256 MG/DL (<150)
== END ==
LOC: M SFHCPLAZ 14:08
PROVIDERS: ATTEND Nurse Practitioner Adult Health
DX: I10 Essential (primary) hypertension (principal); E78.2 Mixed hyperlipidemia

== ENCOUNTER → 2021-01-12 | Outpatient (CLI) | payer OTHER, BC ==
--- NOTE | 2021-01-15 08:27 | REP ---
INDICATION: COUGH, UNSPECIFIED. COMPARISON: Multiple latest 07/03/2020 a portable exam TECHNIQUE: PA and lateral FINDINGS: The superior mediastinal structures are midline. The cardiac silhouette is unremarkable in size, shape, and position. The diaphragmatic surfaces of the lungs are regular, and the costophrenic angles are clear. The pulmonary tinoco are clear. The imaged osseous structures are intact. IMPRESSION: There is no acute cardiopulmonary disease. <Electronically signed by Leonid Shin > 01/15/21 [id number]
== END ==
LOC: M PLAIMG 14:23 → M PLALAB 14:23
PROVIDERS: ATTEND Physician Assistant
DX: R05.9 Cough, unspecified (principal); Z20.822 Contact with and (suspected) exposure to COVID-19
CPT/HCPCS: 71046; U0003

== ENCOUNTER → 2021-06-28 | Outpatient (CLI) | payer MEDICARE | LOC: M RAD 13:57 | PROVIDERS: ATTEND Nurse Practitioner Family | DX: Z12.2 Encounter for screening for malignant neoplasm of respiratory organs (principal); Z87.891 Personal history of nicotine dependence; I77.810 Thoracic aortic ectasia ==